=== PATIENT | male | born 1990 | race Hispanic/Latino ===

== ENCOUNTER 2019-02-24 17:24 | Emergency (ER) | payer BC ==
[2019-02-24 17:31] VITALS: RESP 16
--- NOTE | 2019-02-24 18:44 | ED PDOC ---
HPI: Chest Pain Time Seen by Provider: 02/24/19 18:19 Chief Complaint (Nursing): Abdominal Pain Chief Complaint (Provider): Chest pain History Per: Patient History/Exam Limitations: no limitations Onset/Duration Of Symptoms: Days Current Symptoms Are (Timing): Still Present Quality: Sharp Exacerbating Factors: Deep Breathing Additional Complaint(s): 28 year old male with no pmhx presents to the ED for an evaluation of right- sided chest pain. Patient states earlier today, he began to have sharp right rib pain that worsens with inspiration and laughing. He reports he twisted his body prior to cracking his back and admits to a heavy workout yesterday. Otherwise, patient denies any medication for pain, shortness of breath, fever, chills or cough. Past Medical History Reviewed: Historical Data, Nursing Documentation, Vital Signs Vital Signs: Last Vital Signs Temp 98.5 F 02/24/19 17:30 Pulse 79 02/24/19 17:30 Resp 16 02/24/19 17:30 BP 136/79 02/24/19 17:30 Pulse Ox 98 02/24/19 17:30 Primary Care Provider: DoctorKody - Medical History PMH: No Chronic Diseases - Family History Family History: States: Unknown Family Hx - Home Medications Home Medications: Ambulatory Orders Medication Instructions Recorded Ibuprofen [Motrin Tab] 600 mg PO Q6 PRN 7 Days tab 02/24/19 - Allergies Allergies/Adverse Reactions: Allergies Allergy/AdvReac Type Severity Reaction Status Date / Time amoxicillin Allergy RASH Verified 02/24/19 17:30 Review of Systems ROS Statement: Except As Marked, All Systems Reviewed And Found Negative Constitutional: Negative for: Fever, Chills Cardiovascular: Positive for: Chest Pain (right-sided) Respiratory: Negative for: Cough, Shortness of Breath Physical Exam - Reviewed Nursing Documentation Reviewed: Yes Vital Signs Reviewed: Yes - Physical Exam Appears: Positive for: Well Cardiovascular/Chest: Positive for: Regular Rate, Rhythm, Chest Non Tender (no ecchymosis, erythema or swelling), Other (mild tenderness on palpation to right lateral lower ribs; pain worsens with deep inspiration;cardiovascular exam normal ). Negative for: Murmur Respiratory: Positive for: Normal Breath Sounds Neurological/Psych: Positive for: Awake, Alert, Normal Tone, Oriented (x3) - ECG ECG Rhythm: Positive for: Sinus Rhythm Rate: 71 O2 Sat by Pulse Oximetry: 98 (RA) Pulse Ox Interpretation: Normal Medical Decision Making Medical Decision Making: Time: 18:26 Impression: costrocongitis Plan: EKG Ibuprofen 600mg PO x1 Right ribs & PA CXR 17:38 EKG: Sinus Rhythm at HR of 71bpm and no ischemic changes 18:40 PROCEDURE: Radiographs of the Chest and Right Ribs. HISTORY: right sided rib Pain. No history of recent/ related trauma provided. COMPARISON: None available. TECHNIQUE: Frontal radiograph of the chest and multiple oblique radiographs of the right ribs were obtained. 4 views obtained. FINDINGS: RIGHT RIBS: No fracture or focal lesion visualized. LUNGS: Clear. PLEURA: No pneumothorax or pleural fluid. CARDIOVASCULAR: Normal cardiac size. No pulmonary vascular congestion. No aortic atherosclerotic calcification present OTHER FINDINGS: None. IMPRESSION: Unremarkable radiographs of the chest and right ribs. No right rib fracture. 19:12 Upon provider evaluation patient is medically stable, and requires no further treatment in the ED at this time. Patient will be discharged home. Counseling was provided and all questions were answered regarding diagnosis. There is agreement to discharge plan. Return if symptoms persist or worsen. Scribe Attestation: Documented by Robert Steinberg, acting as a scribe for Chari Levin PA-C. Provider Scribe Attestation: All medical record entries made by the Scribe were at my direction and personally dictated by me. I have reviewed the chart and agree that the record accurately reflects my personal performance of the history, physical exam, medical decision making, and the department course for this patient. I have also personally directed, reviewed, and agree with the discharge instructions and disposition. Disposition - Clinical Impression Clinical Impression: Acute costochondritis - Patient ED Disposition Is Patient to be Admitted: No - Disposition Referrals: Josiah Doss MD [Staff Provider] - Disposition: Routine/Home Disposition Time: 19:12 Condition: STABLE Additional Instructions: Avoid excess physical activity as pain may persist. Take Ibuprofen as needed for pain, take more regularly for the next couple of days. Return to ER if your symptoms worsen despite these measures. Prescriptions: Ibuprofen [Motrin Tab] 600 mg PO Q6 PRN 7 Days tab PRN Reason: Pain, Moderate (4-7) Instructions: Costochondritis (DC) Forms: [employer] (Bel[place]ian) Print Language: MARSHALLESE
--- NOTE | 2019-02-24 18:49 | RAD ---
Date of service: 02/24/2019 PROCEDURE: Radiographs of the Chest and Right Ribs. HISTORY: right sided rib Pain. No history of recent/ related trauma provided. COMPARISON: None available. TECHNIQUE: Frontal radiograph of the chest and multiple oblique radiographs of the right ribs were obtained. 4 views obtained. FINDINGS: RIGHT RIBS: No fracture or focal lesion visualized. LUNGS: Clear. PLEURA: No pneumothorax or pleural fluid. CARDIOVASCULAR: Normal cardiac size. No pulmonary vascular congestion. No aortic atherosclerotic calcification present OTHER FINDINGS: None. IMPRESSION: Unremarkable radiographs of the chest and right ribs. No right rib fracture.
[2019-02-24 19:32] VITALS: BP 122/66; TEMP 98.7
[2019-02-24 21:50] VITALS: PULSE 71; O2SAT 98
--- NOTE | 2019-02-25 13:03 | CARD ---
APPROVED REPORT Date of service: 02/24/2019 EKG Measurement Heart [id number] <Conclusion> Normal sinus rhythm Rightward axis Borderline ECG
== END 2019-02-24 19:30 | disposition home or self-care (01) ==
LOC: H.ER 17:24
DX: M94.0 Chondrocostal junction syndrome [Tietze] (principal)